=== PATIENT | female | born 1975 | race Caucasian/White ===

== ENCOUNTER → 2018-03-10 | Outpatient (CLI) | payer OTHER | LOC: MAMMO 10:22 | PROVIDERS: ATTEND Internal Medicine | DX: Z12.31 Encounter for screening mammogram for malignant neoplasm of breast (principal) | CPT/HCPCS: 77067 ==

== ENCOUNTER → 2022-06-10 | Outpatient (CLI) | payer BC | LOC: MAMMO 13:40 | PROVIDERS: ATTEND Internal Medicine | DX: Z12.31 Encounter for screening mammogram for malignant neoplasm of breast (principal) | CPT/HCPCS: 77067 ==

== ENCOUNTER → 2024-11-01 | Day surgery (SDC) | payer BC ==
[~2024-11-01] MED LIST: ACETAMINOPHEN 1000 MG/100 ML 0 ML IV ONE; ACETAMINOPHEN 1000 MG/100 ML 100 ML IV ONE; CLEOCIN40 GM TOP; DEXAMETHASONE SOD PHOS INJ 4 MG/ML SDV ONE; DOXYCYCLINE HY100 MG PO; FENTANYL CITRATE/PF 100MCG/2 ML INJ ONE; HYDROCODON-ACE1 EA11 PO; LIDOCAINE HCL 2% LOCAL INJ 5 ML SDV VIAL INJ ONE; ONDANSETRON HCL INJ 2MG/ML 2ML 2 MG/ML VIAL ONE; PHENTERMINE H37.5 M1 PO; PROPOFOL IV EMULSION 10 MG/ML 20 ML VIAL ONE; SEVOFLURANE INHAL SOLN 250 ML PEN BTL ONE; TRETINOIN TOP
[2024-11-01] MEDS: LACTATED RINGER'S 1,000 ML ONE (07:05)
[2024-11-01] MEDS: HYDROCODONE/APAP 5MG-325MG TAB ONE (08:35)
[2024-11-01 09:30] VITALS: BP 165/96; PULSE 69; RESP 18; O2SAT 98
== END | disposition home or self-care (01) ==
LOC: OR 06:32
PROVIDERS: ATTEND Plastic Surgery
DX: M65.341 Trigger finger, right ring finger (principal); M65.351 Trigger finger, right little finger; E66.01 Morbid (severe) obesity due to excess calories; R05.9 Cough, unspecified
CPT/HCPCS: 26055 ×2; 81025; J0131; J0690; J1100; J2003; J2405; J2704; J3010; J7121